=== PATIENT | female | born 1940 | race Caucasian/White ===

== ENCOUNTER → 2020-12-17 | Outpatient (CLI) | payer MEDICARE, BC | LOC: EMI 16:11 | DX: R41.3 Other amnesia (principal) | CPT/HCPCS: 70551 ==

== ENCOUNTER → 2021-02-04 | Outpatient (CLI) | payer MEDICARE, BC | LOC: RAD 14:25 | DX: M25.552 Pain in left hip (principal); M54.16 Radiculopathy, lumbar region; M47.816 Spondylosis without myelopathy or radiculopathy, lumbar region | CPT/HCPCS: 72100; 73502 ==

== ENCOUNTER → 2021-02-05 | Outpatient (CLI) | payer MEDICARE, BC | LOC: NM 09:00 | DX: R93.1 Abnormal findings on diagnostic imaging of heart and coronary circulation (principal); R06.02 Shortness of breath; R06.00 Dyspnea, unspecified; I07.1 Rheumatic tricuspid insufficiency | CPT/HCPCS: ECHO; 78452; 93017; 93306; A9502; J2785 ==

== ENCOUNTER → 2021-07-23 | Outpatient (CLI) | payer MEDICARE, BC | LOC: HEART 5 15:00 | DX: R00.0 Tachycardia, unspecified (principal); R53.1 Weakness ==